=== PATIENT | female | born 1955 | race African-American/Black ===

== ENCOUNTER 2021-09-29 10:58 | Emergency (ER) | payer MEDICARE, MEDICAID ==
[~2021-09-29] VITALS: Ht 165.1 cm; Wt 66.0 kg
[~2021-09-29 10:58] MED LIST: T3 PO
[2021-09-29 11:00] VITALS: BP 166/78
[2021-09-29] MEDS ORDERED: NITROGLYCERIN 0.4MG TABLET SL SL PRN (12:00)
[2021-09-29] MEDS ORDERED: ASPIRIN 81MG TABLET PO ONE (12:00)
== END 2021-09-29 15:32 | disposition left against medical advice (07) ==
LOC: ER 11:56
DX: R07.9 Chest pain, unspecified (principal); I10 Essential (primary) hypertension
CPT/HCPCS: 93005; 99283